=== PATIENT | male | born 1945 | race Caucasian/White ===

== ENCOUNTER 2019-02-04 08:56 | Day surgery (SDC) | payer MEDICARE, BC ==
[~2019-02-04 08:56] MED LIST: Lactated Ringers 1,000 ML IV SCH
[2019-02-04] MEDS ORDERED: Propofol 200 MG/20 ML SDV ONE (11:40)
[2019-02-04] MEDS ORDERED: fentaNYL 100 MCG/2 ML SDV ONE (11:40)
--- NOTE | 2019-02-04 12:34 | OR ---
PREOPERATIVE DIAGNOSIS: History of polyps. POSTOPERATIVE DIAGNOSES: 1. Moderate sigmoid diverticulosis. 2. Colonic polyps x2. PROCEDURE PROPOSED: Total flexible colonoscopy. PROCEDURE DONE: Total flexible colonoscopy with cold forceps biopsy polypectomy x2. INDICATIONS: This is a 73-year-old gentleman who comes in for colonic surveillance due to history of polyps. Last examination was 5 years ago. TECHNIQUE: The patient was brought to the endoscopy suite, placed in left lateral decubitus position. He was sedated per LEVEL DESIGNER with propofol. The flexible video colonoscope was then passed transanally and under visualization advanced to the cecum. Examination revealed a normal ascending colon. In the transverse colon at about 70 cm, there was a small polyp removed with 2 bites of the cold biopsy forceps and submitted for pathologic examination. The remainder of the transverse and descending colon was unremarkable. In the proximal sigmoid at about 40 cm, there was another tiny polyp removed with 1 bite of the cold biopsy forceps. He was noted to have rather moderate sigmoid diverticulosis, and the rectum was normal as the scope was withdrawn. He tolerated the procedure well. FINAL IMPRESSION: 1. Colonic polyps x2 removed. 2. Sigmoid diverticulosis. PLAN: He will be sent a letter with pathology report. I felt that he should have 1 more examination in his lifetime in 5 years from now. SCM: 02/04/2019 12:03:49 MODL: 02/04/2019 12:23:32 /[id number] MTDD
--- NOTE | 2019-02-18 09:45 | LETTER ---
02/18/2019 RE: JOHAN HOWARD : 1945 Dear Mr. Howard: The polyps removed from your colon were benign but are considered precancerous type polyps, and because of this finding, I feel that you should have a 5-year followup exam of your colon to make sure you have not formed any new polyps. Respectfully,
== END 2019-02-04 12:55 | disposition home or self-care (01) ==
LOC: VM.SDS 08:56
PROVIDERS: ATTEND Surgery
DX: Z12.11 Encounter for screening for malignant neoplasm of colon (principal); D12.3 Benign neoplasm of transverse colon; D12.5 Benign neoplasm of sigmoid colon; K57.30 Diverticulosis of large intestine without perforation or abscess without bleeding; K21.9 Gastro-esophageal reflux disease without esophagitis; E78.5 Hyperlipidemia, unspecified; E66.9 Obesity, unspecified; G47.33 Obstructive sleep apnea (adult) (pediatric); G89.29 Other chronic pain; M54.6 Pain in thoracic spine; M17.11 Unilateral primary osteoarthritis, right knee; N40.1 Benign prostatic hyperplasia with lower urinary tract symptoms; Z88.0 Allergy status to penicillin; Z68.34 Body mass index [BMI] 34.0-34.9, adult; Z99.89 Dependence on other enabling machines and devices; Z86.010 Personal history of colon polyps; Z79.82 Long term (current) use of aspirin; Z79.51 Long term (current) use of inhaled steroids; Z79.899 Other long term (current) drug therapy
CPT/HCPCS: 00811; 45380; J2704; J3010; J7120; 88305

== ENCOUNTER 2020-01-09 17:32 | Emergency (ER) | payer MEDICARE, BC ==
[2020-01-09] MEDS ORDERED: Acetaminophen 325 MG Tab PO ONE (18:02)
--- NOTE | 2020-01-09 18:08 | EDM.PDOC ---
ED HPI GENERAL MEDICAL PROBLEM - General Chief Complaint: General Stated Complaint: FALL Time Seen by Provider: 01/09/20 17:50 Source of Information: Reports: Patient, Family History Limitations: Reports: No Limitations - History of Present Illness INITIAL COMMENTS - FREE TEXT/NARRATIVE: Patient states he was helping his son-in-law move and 1 of his grandchildren's balls got loose and he was chasing it down a driveway and tripped over the head of a sprinkler and fell on the concrete scraping both knees and his nose on the concrete. He denies any loss of consciousness or head injury states it occurred about 45 minutes prior to arrival states he just feels a little sore all over and has a headache about a 4 out of 10 dull to the forehead area. He denies any vision changes unsteadiness lightheadedness dizziness syncopal or near syncopal episodes no nausea vomiting no change in gait or behavior per He does not take any blood thinners tetanus is up-to-date Onset: Today, Sudden Duration: Minutes: Location: Reports: Face, Lower Extremity, Left, Lower Extremity, Right Severity: Mild Associated Symptoms: Reports: No Other Symptoms Nose Pain Score (Numeric/FACES): 5 Bilateral Knee Pain Score (Numeric/FACES): 5 - Related Data Allergies Allergy/AdvReac Type Severity Reaction Status Date / Time potassium clavulanate AdvReac Diarrhea Verified 01/09/20 17:48 [From Augmentin] Home Meds: Home Meds Acetaminophen [Tylenol Extra Strength] 1,000 mg PO Q6H PRN 01/27/14 [History] Aspirin [Ecotrin] 325 mg PO BID 01/27/14 [History] Multivit,Calc,Mins/Iron/Folic [Thera-M] 1 each PO DAILY 01/27/14 [History] Omeprazole [Prilosec] 20 mg PO DAILY 01/27/14 [History] Saw [place] 1,000 mg PO BID 01/27/14 [History] Triamcinolone Acetonide [Triamcinolone Acetonide 0.1% Crm] 15 gm TOP BID PRN 01/27/14 [History] atorvaSTATin [Lipitor] 40 mg PO BEDTIME 01/27/14 [History] Dextran 70/Hypromellose [Artificial Tears] 1 - 2 drop EYEBOTH Q4H PRN 06/30/17 [History] Fluticasone Propionate [Flonase] 1 spray NASBOTH DAILY 06/30/17 [History] Tamsulosin [Flomax] 0.4 mg PO DAILY 06/30/17 [History] Amoxicillin 2,000 mg PO DAILY PRN 01/31/19 [History] Finasteride 5 mg PO DAILY 01/31/19 [History] Sennosides/Docusate Sodium [Senna-Docusate Sodium Tablet] 1 each PO BID 01/31/19 [History] Past Medical History HEENT History: Reports: Impaired Vision, Sinusitis Cardiovascular History: Reports: High Cholesterol Respiratory History: Reports: Sleep Apnea Gastrointestinal History: Reports: Colon Polyp, GERD, Hemorrhoids Genitourinary History: Reports: BPH, Other (See Below) Other Genitourinary History: erectile dysfunction Musculoskeletal History: Reports: Arthritis, Back Pain, Chronic, Osteoarthritis, Other (See Below) Other Musculoskeletal History: Spinal stenosis, Right flank pain Psychiatric History: Reports: Other (See Below) Endocrine/Metabolic History: Reports: Obesity/BMI 30+, Other (See Below) Other Endocrine/Metabolic History: hypertriglyceridemia Hematologic History: Reports: Other (See Below) Other Hematologic History: impaired fasting glucose - Past Surgical History HEENT Surgical History: Reports: None Cardiovascular Surgical History: Reports: None Respiratory Surgical History: Reports: None GI Surgical History: Reports: Colonoscopy, Hernia, Inguinal Musculoskeletal Surgical History: Reports: Arthroscopic Procedure, Hip Replacement, Shoulder Replacement, Shoulder Surgery - Past Imaging History Past Imaging History: Reports: CAT Scan (abd,), MRI (thoracic), Xray (ribs) Social & Family History - Family History Endocrine/Metabolic: Reports: Diabetes, type II Oncologic: Reports: Prostate - Tobacco Use Smoking Status *Q: Unknown Ever Smoked - Caffeine Use Caffeine Use: Reports: Coffee (1/day), Soda (1/day) - Living Situation & Occupation Living situation: Reports: , with Significant Other Occupation: Retired ([employer]) ED ROS GENERAL - Review of Systems Review Of Systems: See Below Constitutional: Reports: No Symptoms. Denies: Malaise, Weakness, Fatigue HEENT: Reports: No Symptoms, Nose Pain, Other (Bleeding from the top of the nose and just below it but no nasal bleeding from the naris). Denies: Dental Pain, Ear Discharge, Eye Pain, Vision Change Respiratory: Reports: No Symptoms Cardiovascular: Reports: No Symptoms. Denies: Lightheadedness, Syncope Endocrine: Reports: No Symptoms GI/Abdominal: Reports: No Symptoms Musculoskeletal: Reports: No Symptoms. Denies: Neck Pain Skin: Reports: No Symptoms Neurological: Reports: Headache. Denies: Confusion, Dizziness, Numbness, Paresthesia, Syncope, Tingling, Trouble Speaking, Difficulty Walking, Weakness, Gait Disturbance Hematologic/Lymphatic: Reports: No Symptoms. Denies: Anemia, Easy Bleeding, Easy Bruising Immunologic: Reports: No Symptoms ED EXAM, GENERAL - Physical Exam Exam: See Below Exam Limited By: No Limitations General Appearance: Alert, WD/WN, No Apparent Distress, Other (PT looks well no acute distress alert and oriented x4 normal conversation logical thought process asking questions and follows all commands appropriately) Eye Exam: Bilateral Eye: EOMI, Normal Inspection Ears: Normal External Exam, Normal Canal, Hearing Grossly Normal, Normal TMs, Other (No blood behind the tympanic membranes) Nose: Normal Inspection, Normal Mucosa, No Blood, Nasal Tenderness, Nasal Swelling, Other (Patient has a superficial abrasion over the bridge of the nose there is no bleeding inside the naris bilateral there is no septal deviation mild tenderness to palpation over the nose but no edema is noted he has no tenderness to palpation over the inferior superior orbits no pain or pressure noted with Valsalva) Throat/Mouth: Normal Inspection, Normal Teeth, Normal Gums, Normal Oropharynx, Normal Voice, No Airway Compromise, Other (Patient has no pain with palpation over the maxillary mandible bilateral sinus cavities he has a normal bite no pain noted) Head: Atraumatic, Normocephalic. No: Facial Swelling, Facial Tenderness, Sinus Tenderness Neck: Normal Inspection, Supple, Non-Tender, Full Range of Motion, Other (Tenderness palpation over the C-spine no step-offs noted) Respiratory/Chest: No Respiratory Distress, Chest Non-Tender Cardiovascular: Normal Peripheral Pulses, Regular Rate, Rhythm, No Edema, No Gallop, No JVD, No Murmur GI/Abdominal: Normal Bowel Sounds, Soft, Non-Tender, No Organomegaly, No Distention, No Abnormal Bruit Extremities: Normal Inspection, Normal Range of Motion, Non-Tender, No Pedal Edema, Normal Capillary Refill, Other (There is a noted circular 5 cm abrasion to the left knee and a 2 cm abrasion to the right knee patient has full range of motion with all extremities no tenderness palpation over the tibial plateau or the femur there is no edema noted over either both are neurovascularly intact) Neurological: Alert, Oriented, CN II-XII Intact, Normal Cognition, Normal Gait, Normal Reflexes, No Motor/Sensory Deficits Psychiatric: Normal Affect, Normal Mood Skin Exam: Warm, Dry, Intact, Normal Color, No Rash Course - Vital Signs Text/Narrative:: Patient was given 650 mg Tylenol for the headache the abrasions were cleaned patient was instructed to continue to keep the areas clean dry apply Neosporin to the area for the next 2 to 3 days at least twice a day then he may switch to vitamin E oil Signs and symptoms of head injury was given to the patient and the they both give verbal understanding some signs and symptoms watch for and need to return to the emergency room Last Recorded V/S: Last Vital Signs Temp 37.1 C 01/09/20 17:40 Pulse 67 01/09/20 17:40 Resp 16 01/09/20 17:40 BP 147/68 H 01/09/20 17:40 Pulse Ox 97 01/09/20 17:40 - Orders/Labs/Meds Orders: Active Orders 24 hr Category Date Time Status Acetaminophen [Tylenol] Med 01/09/20 18:02 Once 650 mg PO NOW ONE Departure - Departure Time of Disposition: 18:35 Disposition: Home, Self-Care 01 Condition: Good Clinical Impression: Contusion of nose, initial encounter, Contusion of right knee, Contusion of left knee, Abrasions of multiple sites - Discharge Information *PRESCRIPTION DRUG MONITORING PROGRAM REVIEWED*: No *COPY OF PRESCRIPTION DRUG MONITORING REPORT IN PATIENT HORTENCIA: No Referrals: Margarita Bey DO [Primary Care Provider] - Sepsis Event Note (ED) - Evaluation Sepsis Screening Result: No Definite Risk - Focused Exam Vital Signs: Vital Signs Temp Pulse Resp BP Pulse Ox 01/09/20 17:40 37.1 C 67 16 147/68 H 97 - Problem List & Annotations (1) Contusion of nose, initial encounter SNOMED Code(s): 62074358 Code(s): S00.33XA - CONTUSION OF NOSE, INITIAL ENCOUNTER Status: Acute Current Visit: Yes (2) Contusion of right knee SNOMED Code(s): 01148528 Code(s): S80.01XA - CONTUSION OF RIGHT KNEE, INITIAL ENCOUNTER Status: Acute Current Visit: Yes (3) Abrasions of multiple sites SNOMED Code(s): 401937003, 383297826 Code(s): T07.XXXA - UNSPECIFIED MULTIPLE INJURIES, INITIAL ENCOUNTER Status: Acute Current Visit: Yes - My Orders Last 24 Hours: My Active Orders 01/09/20 18:02 Acetaminophen [Tylenol] 650 mg PO NOW ONE - Assessment/Plan Last 24 Hours: My Active Orders 01/09/20 18:02 Acetaminophen [Tylenol] 650 mg PO NOW ONE
== END 2020-01-09 18:24 | disposition home or self-care (01) ==
LOC: VM.ED 17:32
DX: S80.02XA Contusion of left knee, initial encounter (principal); S80.01XA Contusion of right knee, initial encounter; S00.33XA Contusion of nose, initial encounter; K21.9 Gastro-esophageal reflux disease without esophagitis; E78.00 Pure hypercholesterolemia, unspecified; M19.90 Unspecified osteoarthritis, unspecified site; E66.9 Obesity, unspecified; Z88.1 Allergy status to other antibiotic agents; Z79.82 Long term (current) use of aspirin; Z79.899 Other long term (current) drug therapy; W01.198A Fall on same level from slipping, tripping and stumbling with subsequent striking against other object, initial encounter
CPT/HCPCS: 99282; 99284; A9270

== ENCOUNTER 2022-03-31 14:05 | Emergency (ER) | payer MEDICARE, BC | END 2022-03-31 15:53 | disposition home or self-care (01) | LOC: VM.ED 14:05 | DX: S29.011A Strain of muscle and tendon of front wall of thorax, initial encounter (principal); M19.90 Unspecified osteoarthritis, unspecified site; K21.9 Gastro-esophageal reflux disease without esophagitis; N40.0 Benign prostatic hyperplasia without lower urinary tract symptoms; E66.9 Obesity, unspecified; Z68.30 Body mass index [BMI] 30.0-30.9, adult; Z88.0 Allergy status to penicillin; Z79.82 Long term (current) use of aspirin; Z79.899 Other long term (current) drug therapy | CPT/HCPCS: 99283 ==

== ENCOUNTER 2023-09-07 07:07 | Day surgery (SDC) | payer MEDICARE, BC ==
[2023-09-07] MEDS: Lactated Ringers 1,000 ML IV SCH (07:33)
[2023-09-07] MEDS ORDERED: fentaNYL 100 MCG/2 ML SDV ONE (08:25)
[2023-09-07] MEDS ORDERED: Propofol 200 MG/20 ML SDV ONE (08:25)
[2023-09-07] MEDS: Citric Acid/Sodium Citrate Solution 30 ML Cup PO ONE (09:04)
== END 2023-09-07 11:25 | disposition home or self-care (01) ==
LOC: VM.SDS 07:07
PROVIDERS: ATTEND Family Medicine
DX: Z12.11 Encounter for screening for malignant neoplasm of colon (principal); D12.6 Benign neoplasm of colon, unspecified; K57.30 Diverticulosis of large intestine without perforation or abscess without bleeding; E78.5 Hyperlipidemia, unspecified; R19.4 Change in bowel habit; I10 Essential (primary) hypertension; K21.9 Gastro-esophageal reflux disease without esophagitis; K63.5 Polyp of colon; N40.0 Benign prostatic hyperplasia without lower urinary tract symptoms; E78.1 Pure hyperglyceridemia; E66.9 Obesity, unspecified; G47.33 Obstructive sleep apnea (adult) (pediatric); Z68.39 Body mass index [BMI] 39.0-39.9, adult; Z79.899 Other long term (current) drug therapy; Z88.0 Allergy status to penicillin; Z87.891 Personal history of nicotine dependence; Z86.010 Personal history of colon polyps
CPT/HCPCS: 00811; 88304; 88305; A9270-GY; J2704; J3010; J7120